=== PATIENT | female | born 1965 | race Caucasian/White ===

== ENCOUNTER 2025-05-27 06:16 | Day surgery (SDC) | payer BC, SELFPAY | END 2025-05-27 14:07 | disposition home or self-care (01) | LOC: GI 06:16 | PROVIDERS: ATTENDING PHYSICIAN Surgery | DX: R19.5 Other fecal abnormalities (principal); N81.6 Rectocele; K92.2 Gastrointestinal hemorrhage, unspecified | CPT/HCPCS: 45378 ==

== ENCOUNTER → 2025-05-29 06:58 | Outpatient (REF) | payer BC, SELFPAY | LOC: RAD 06:58 | PROVIDERS: ATTENDING PHYSICIAN Surgery; FAMILY PHYSICIAN Family Medicine | DX: Z90.49 Acquired absence of other specified parts of digestive tract (principal) | CPT/HCPCS: 74018 ==

== ENCOUNTER → 2025-09-25 07:07 | Outpatient (REF) | payer BC, SELFPAY | LOC: RAD 07:07 | PROVIDERS: ATTENDING PHYSICIAN Surgery; FAMILY PHYSICIAN Family Medicine | DX: Z90.49 Acquired absence of other specified parts of digestive tract (principal) | CPT/HCPCS: 74270 ==